=== PATIENT | female | born 1980 | race Caucasian/White ===

== ENCOUNTER 2017-12-28 10:18 | Emergency (ER) | END 2017-12-28 15:35 | disposition home or self-care (01) ==

== ENCOUNTER 2018-06-25 14:01 | Emergency (ER) | payer OTHER ==
[~2018-06-25] VITALS: Ht 154.9 cm; Wt 73.8 kg
[~2018-06-25 14:01] MED LIST: CYCL10TA7 PO; IBUP-1542 PO; NITR-58 PO
[2018-06-25 14:38] VITALS: PULSE 73; Ht 154.9 cm; Wt 73.8 kg
[2018-06-25] MEDS ORDERED: NITR-58 PO (17:06)
[2018-06-25] MEDS ORDERED: KETOROLAC 60 MG INJ IM STA (17:57)
--- NOTE | 2018-06-25 17:57 | ERD ---
ER Documentation Chief Complaint Chief Complaint back pain frequent urination x 1 week HPI 37-year-old female with history of UTIs complaints of dysuria, suprapubic pain, and lower back pain for the past 2 weeks. Patient denies any vaginal discharge. Patient denies vomiting, fever, hematuria. Patient denies taking any treatments. States that the course is constant. In addition she denies incontinence, weakness in her legs, or any saddle numbness. She is allergic to penicillins. No other medical history. No medications. ROS All systems reviewed and are negative except as per history of present illness. Medications Home Meds Active Scripts Ibuprofen* (Motrin*) 600 Mg Tab, 600 MG PO Q6, #30 TAB Prov:CARMEN SON 06/25/18 Nitrofurantoin Monohyd Macrocr* (Macrobid*) 100 Mg Capsr, 100 MG PO BID for UTI for 7 Days, CAP Prov:CARMEN SON 06/25/18 Nitrofurantoin Monohyd Macrocr* (Macrobid*) 100 Mg Capsr, 100 MG PO BID for 7 Days, CAP Prov:KATIA KAMINSKI PA-C 12/28/17 Cyclobenzaprine Hcl* (Cyclobenzaprine Hcl*) 10 Mg Tablet, 10 MG PO TID, #15 TAB Prov:KATIA KAMINSKI PA-C 12/28/17 Allergies Allergies: Coded Allergies: Penicillins (Verified Allergy, Unknown, 12/28/17) PMhx/Soc Medical and Surgical Hx: pt denies Medical Hx History of Surgery: Yes (CHOLECYSTECTOMY) Anesthesia Reaction: No Hx Neurological Disorder: No Hx Respiratory Disorders: No Hx Cardiac Disorders: No Hx Psychiatric Problems: No Hx Miscellaneous Medical Probl: No Hx Alcohol Use: No Hx Substance Use: No Hx Tobacco Use: No Smoking Status: Never smoker FmHx Family History: No diabetes, No coronary disease, No other Physical Exam Vitals Vital Signs Date Temp Pulse Resp B/P (MAP) Pulse Ox O2 O2 Flow FiO2 Time Delivery Rate 06/25/18 18 116/69 18:07 (85) 06/25/18 98.1 73 18 116/72 100 14:38 (87) Physical Exam Const: No acute distress Eyes: Normal Conjunctiva ENT: Normal External Ears, Nose and Mouth. Resp: Clear to auscultation bilaterally Cardio: Regular rate and rhythm, no murmurs Abd: Suprapubic tenderness. Otherwise soft, non tender, non distended. Normal bowel sounds Back: No midline or flank tenderness. Full rom of back. Ext: No cyanosis, or edema. No saddle numbness. 5/5 strength in extremties. Neur: Awake and alert Psych: Normal Mood and Affect Results 24 hrs Laboratory Tests Test 06/25/18 17:12 06/25/18 17:17 06/25/18 17:25 06/25/18 17:27 Bedside Urine pH 6.0 6.0 (LAB) Bedside Urine Negative Negative Protein (LAB) Bedside Urine Negative Negative Glucose (UA) Bedside Urine Negative Negative Ketones (LAB) Bedside Urine Blood Negative Trace-intact Bedside Urine Negative Negative Nitrite (LAB) Bedside Urine 1+ 1+ Leukocyte Esterase (L POC Beta HCG, NEGATIVE NEGATIVE Qualitative Current Medications Medications Dose Sig/[place] Start Time Status Last (Trade) Ordered Route PRN Stop Time Admin Dose Reason Admin Ketorolac 60 mg ONCE STAT 06/25/18 DC 06/25/18 Tromethamine IM 17:57 18:02 (Toradol) 06/25/18 17:59 Procedures/MDM 37-year-old female with history of UTIs complaints of dysuria, suprapubic pain, and lower back pain for the past 2 weeks. Patient denies any vaginal discharge. Patient denies vomiting, fever, hematuria. Patient denies taking any treatments. States that the course is constant. In addition she denies incontinence, weakness in her legs, or any saddle numbness. Urinalysis was ordered and she was positive for UTI. Due to patient's penicillin allergy patient was given Rx for Macrobid and ibuprofen. Patient also states she had discomfort in the ER so she was given some Toradol. I have low suspicion for cauda equina, spinal fracture, pyelonephritis, or other emergent condition. Patient discharged with strict ER precautions. Patient advised to follow up with PMD. All questions answered at discharge. Departure Diagnosis: Primary Impression: UTI (urinary tract infection) Urinary tract infection type: site unspecified Hematuria presence: without hematuria Qualified Codes: N39.0 - Urinary tract infection, site not specified Condition: Stable Patient Instructions: Understanding Urinary Tract Infections (UTIs) Additional Instructions: FOLLOW UP WITH YOUR PRIMARY CARE PHYSICIAN TOMORROW.Return to this facility if you are not improving as expected. CARMEN SON Jun 25, 2018 17:57
[2018-06-25] MEDS ORDERED: IBUP-1542 PO (17:58)
[2018-06-25 18:07] VITALS: BP 116/69; RESP 18
== END 2018-06-25 18:09 | disposition home or self-care (01) ==
LOC: FTE 14:01
DX: N39.0 Urinary tract infection, site not specified (principal)
CPT/HCPCS: 81003; 81025; 96372; J1885; Z7502

== ENCOUNTER 2018-09-30 10:07 | Emergency (ER) | payer OTHER ==
[~2018-09-30] VITALS: Ht 154.9 cm; Wt 74.2 kg
[2018-09-30 10:11] VITALS: BP 122/72; PULSE 61; RESP 18; Ht 154.9 cm; Wt 74.2 kg
[2018-09-30] MEDS ORDERED: PROM6.2515 PO (10:43)
[2018-09-30] MEDS ORDERED: PSEU-79 PO (10:43)
[2018-09-30] MEDS ORDERED: BENZ-6 PO (10:43)
--- NOTE | 2018-09-30 12:01 | ERD ---
ER Documentation Chief Complaint Chief Complaint cough, sorethroat, fever x5 days HPI 38-year-old female presenting with cough sore throat and fever x5 days. Patient has some mild pain with deep breaths. She took some medication at home but does not recall the name. She has body aches and a dry cough. Denies other medical problems. Allergy to penicillin. Surgical history cholecystectomy. Social history denies. Positive sick contacts at home ROS All systems reviewed and are negative except as per history of present illness. Medications Home Meds Active Scripts Promethazine Hcl* (Promethazine Hcl* Syrup) 6.25 Mg/5 Ml Syrup, 6.25 MG PO Q6H PRN for COUGH, #100 ML Prov:HILARIO CORDERO PA-C 09/30/18 Benzonatate* (Tessalon Perle*) 100 Mg Capsule, 100 MG PO Q8H PRN for COUGH, #30 CAP Prov:HILARIO CORDERO PA-C 09/30/18 Pseudoephedrine Hcl* (Suphedrin*) 30 Mg Tablet, 30 MG PO Q6 PRN for CONGESTION, #30 TAB Prov:HILARIO CORDERO PA-C 09/30/18 Ibuprofen* (Motrin*) 600 Mg Tab, 600 MG PO Q6, #30 TAB Prov:CARMEN SON 06/25/18 Nitrofurantoin Monohyd Macrocr* (Macrobid*) 100 Mg Capsr, 100 MG PO BID for UTI for 7 Days, CAP Prov:CARMEN SON 06/25/18 Nitrofurantoin Monohyd Macrocr* (Macrobid*) 100 Mg Capsr, 100 MG PO BID for 7 Days, CAP Prov:KATIA KAMINSKI PA-C 12/28/17 Cyclobenzaprine Hcl* (Cyclobenzaprine Hcl*) 10 Mg Tablet, 10 MG PO TID, #15 TAB Prov:KATIA KAMINSKI PA-C 12/28/17 Allergies Allergies: Coded Allergies: Penicillins (Verified Allergy, Unknown, 12/28/17) PMhx/Soc History of Surgery: Yes (CHOLECYSTECTOMY) Anesthesia Reaction: No Hx Neurological Disorder: No Hx Respiratory Disorders: No Hx Cardiac Disorders: No Hx Psychiatric Problems: No Hx Miscellaneous Medical Probl: No Hx Alcohol Use: No Hx Substance Use: No Hx Tobacco Use: No Smoking Status: Never smoker FmHx Family History: No diabetes, No coronary disease, No other Physical Exam Vitals Vital Signs Date Temp Pulse Resp B/P (MAP) Pulse Ox O2 O2 Flow FiO2 Time Delivery Rate 09/30/18 98.4 61 18 122/72 98 10:11 (89) Physical Exam GENERAL: The patient is well-appearing, well-nourished, in no acute distress HEENT: Atraumatic. Conjunctivae are pink. Pupils equal, round, and reactive to light. There is no scleral icterus. Tympanic membranes clear bilaterally. Oropharynx clear. NECK: C-spine is soft and supple. There is no meningismus. There is no cervical lymphadenopathy. . CHEST: Clear to auscultation bilaterally. There are no rales, wheezes or rhonchi. HEART: Regular rate and rhythm. No murmurs, clicks, rubs or gallops. Procedures/MDM DM: 38-year-old female presenting with URI symptoms. I have low suspicion for pneumonia. I have low suspicion for respiratory distress or hypoxia. She is discharged with supportive medications. Patient is told symptoms change or worsen to return immediately to the ER. I do not feel patient requires antibiotics and likely has viral syndrome. All questions answered at discharge Departure Diagnosis: Primary Impression: Upper respiratory infection Condition: Stable Patient Instructions: Uri, Viral, No Abx (Adult) Referrals: [facility] (PCP) Additional Instructions: FOLLOW UP WITH YOUR PRIMARY CARE PHYSICIAN TOMORROW.Return to this facility if you are not improving as expected. HILARIO CORDERO PA-C September 30, 2018 12:00
== END 2018-09-30 11:11 | disposition home or self-care (01) ==
LOC: FTE 10:07
DX: J06.9 Acute upper respiratory infection, unspecified (principal)
CPT/HCPCS: 99283